=== PATIENT | female | born 1960 | race Caucasian/White ===

== ENCOUNTER 2024-02-24 09:49 | Day surgery (SDC) | payer MEDICARE, OTHER ==
[2024-02-24] MEDS ORDERED: Decadron 4 MG INJ IV ONE (09:50)
[2024-02-24] MEDS ORDERED: Xylocaine-Mpf 2% 5 Ml Vial IJ ONE (09:50)
[2024-02-24] MEDS ORDERED: DIPRIVAN 200 MG/20 ML IV ONE (11:57)
--- NOTE | 2024-02-24 12:45 | XRAY ---
Indication: Left C2-C4 MBB. Intraoperative fluoroscopy provided 14 seconds. 3 digital spot image submitted for interpretation demonstrates posterior needle tips projecting over the expected left C2-C4 nerve roots. Correlate with intraoperative findings/report. Incidental lower cervical fusion hardware.
[2024-02-24] MEDS ORDERED: Lactated Ringers 1,000 ML IV ONE (14:46)
--- NOTE | 2024-02-24 15:01 | XRAY ---
14 seconds of fluoroscopy was used in surgery for a left C2-C4 MBB.
== END 2024-02-24 12:26 | disposition home or self-care (01) ==
LOC: SDC-PAIN 09:49
PROVIDERS: ATTEND Psychiatry & Neurology Pain Medicine
DX: M47.812 Spondylosis without myelopathy or radiculopathy, cervical region (principal)
CPT/HCPCS: 64490; 64491; 72040; 77002; J1100; J2704

== ENCOUNTER 2024-03-30 10:41 | Day surgery (SDC) | payer MEDICARE, OTHER ==
[2024-03-30] MEDS ORDERED: LIDOCAINE HCL 1% AMPUL 5 ML IJ ONE (10:42)
[2024-03-30] MEDS ORDERED: Decadron 4 MG INJ IV ONE (10:42)
[2024-03-30] MEDS ORDERED: BUPIVACAINE 0.5% VIAL IJ ONE (10:42)
[2024-03-30] MEDS ORDERED: DIPRIVAN 200 MG/20 ML IV ONE ×2 (12:56→13:01)
[2024-03-30] MEDS ORDERED: Versed 2 MG/2 ML Injection ONE ×2 (13:05→13:10)
[2024-03-30] MEDS ORDERED: Amidate 20 MG/10 ML IV ONE (13:14)
--- NOTE | 2024-03-30 14:21 | XRAY ---
Indication: Left C2-C4 MBB. Intraoperative fluoroscopy provided for 13 seconds. 3 digital spot image submitted for interpretation demonstrates posterior needle tips projecting over the expected left C2-C4 nerve roots. Correlate with intraoperative findings/report.
--- NOTE | 2024-03-30 14:54 | XRAY ---
13 seconds of fluoroscopy was used in surgery for a left C2-C4 MBB.
== END 2024-03-30 13:36 | disposition home or self-care (01) ==
LOC: SDC-PAIN 10:41
PROVIDERS: ATTEND Psychiatry & Neurology Pain Medicine
DX: M47.812 Spondylosis without myelopathy or radiculopathy, cervical region (principal)
CPT/HCPCS: 72040; 77002; J1100; J2250; J2704

== ENCOUNTER 2024-05-04 10:37 | Day surgery (SDC) | payer MEDICARE, OTHER ==
[2024-05-04] MEDS ORDERED: BUPIVACAINE 0.5% VIAL IJ ONE (10:38)
[2024-05-04] MEDS ORDERED: LIDOCAINE HCL 1% AMPUL 5 ML IJ ONE (10:38)
[2024-05-04] MEDS ORDERED: Decadron 4 MG INJ IV ONE (10:38)
[2024-05-04] MEDS ORDERED: DIPRIVAN 200 MG/20 ML IV ONE ×2 (11:58→12:06)
--- NOTE | 2024-05-04 14:00 | XRAY ---
Indication: Left C2-C4 RFA. Intraoperative fluoroscopy provided for 26 seconds. 2 digital spot image submitted for interpretation demonstrates posterior needle tips projecting over expected left C2-C4 nerve roots. Correlate with intraoperative findings/report. Incidental lower cervical fusion hardware.
--- NOTE | 2024-05-04 14:03 | XRAY ---
26 seconds of fluoroscopy was used in surgery for a left C2-C4 RFA.
== END 2024-05-04 12:30 | disposition home or self-care (01) ==
LOC: SDC-PAIN 10:37
PROVIDERS: ATTEND Psychiatry & Neurology Pain Medicine
DX: M47.812 Spondylosis without myelopathy or radiculopathy, cervical region (principal)
CPT/HCPCS: 64633; 64634; 72040; 77002; J1100; J2704

== ENCOUNTER 2024-06-22 13:19 | Day surgery (SDC) | payer MEDICARE, OTHER ==
[2024-06-22] MEDS ORDERED: LIDOCAINE HCL 2% 100 MG/5 ML IJ ONE (13:20)
[2024-06-22] MEDS ORDERED: dexAMETHasone sodium phosphate IJ ONE (13:20)
[2024-06-22] MEDS ORDERED: propofoL IV ONE (15:04)
--- NOTE | 2024-06-22 16:30 | XRAY ---
Indication: Right C2-C5 MBB. Intraoperative fluoroscopy provided for 15 seconds. 2 digital spot image submitted for interpretation demonstrates posterior needle tips projecting over expected right C2-C5 nerve roots. Correlate with intraoperative findings/report. Incidental lower cervical fusion hardware.
--- NOTE | 2024-06-22 16:43 | XRAY ---
15 seconds of fluoroscopy was used in surgery for a right C2-C5 MBB.
== END 2024-06-22 15:35 | disposition home or self-care (01) ==
LOC: SDC-PAIN 13:19
PROVIDERS: ATTEND Psychiatry & Neurology Pain Medicine
DX: M47.812 Spondylosis without myelopathy or radiculopathy, cervical region (principal)
CPT/HCPCS: 64490; 64491; 72040; 77002; J1100; J2704